=== PATIENT | female | born 1995 | race Caucasian/White ===

== ENCOUNTER 2018-08-06 13:53 | Emergency (ER) | payer OTHER, SELFPAY ==
[2018-08-06 13:54] VITALS: BP 124/73; PULSE 74; RESP 16; TEMP 36.8; O2SAT 99; BMI 25.6
--- NOTE | 2018-08-06 14:04 | US_ITS ---
STUDY: FIRST TRIMESTER OBSTETRICAL ULTRASOUND REASON FOR EXAM: Female, 23 years old. Bleeding. LMP: May 19, 2018 TECHNIQUE: Transvaginal TECHNICAL QUALITY: Adequate. PRIOR ULTRASOUND: None. FINDINGS: There is visualization of a single gestational sac in a normal intrauterine position. The mean sac diameter (MSD) measures 5.3 cm, indicating an estimated gestational age (EGA) of 11 weeks, 3 days. The gestational sac shape is within normal limits. There is small adjacent hypoechoic region with probable subchorionic hemorrhage There is no demonstrated yolk sac. The placenta is non-visualized. There is visualization of a live embryo. The crown-rump length (CRL) measures 4.9 cm, indicating an estimated gestational age (EGA) of 11 weeks, 4 days. There is demonstrated cardiac activity with a heart rate of 164 bpm. The estimated gestation age (EGA) by LMP is 11 weeks, 2 days. The estimated date of delivery (ESTHER) by LMP is February 23, 2019. The estimated gestation age (EGA) by US is 11 weeks, 4 days. The estimated date of delivery (ESTHER) by US is February 21, 2019. The uterus measures 12.6 x 8.2 x 7.9 cm. There is no demonstrated uterine fibroid. The cervix is closed. The right ovary measures 4.4 x 2.3 x 2.2 cm. There is no right ovarian cyst. There is no visualized right adnexal mass or complex lesion. The left ovary is not visualized. There is no fluid in the cul de sac. US/Transvaginal w/Preg US IMPRESSION: Single intrauterine gestation 11 weeks 4 days with estimated due date February 21, 2019. Region of probable subchorionic hemorrhage. Electronically Signed: Rudolph Cole MD at 16:59 EDT , Service support ,
--- NOTE | 2018-08-06 14:06 | ED.DCSUM_ITS ---
- ER Visit Summary Date of Service: 08/06/18 Chief Complaint: Vaginal bleeding, 11 weeks History of Present Illness: The patient is a 23 F who started having vaginal bleeding today. She states that similar to her menstrual period. She denies any pelvic pain with this. No vaginal discharge. She does have some urinary frequency but no dysuria. She is . She is sexually active with one partner. She has had no OB care up to this point. Physical Examination: Vital signs reviewed. HEENT exam unremarkable. Heart is regular rate and rhythm without murmurs. Lungs are clear to auscultation. Abdomen is soft and nontender. exam is deferred. Extremities reveal no edema. Skin exam normal. Neurologic exam normal. Test Results: The patient is O+. Urinalysis shows blood, likely from the vaginal bleeding. HCG quantitative is 71,283. Ultrasound per my interpretation as well as telecommunications switch technician shows a heart rate of 164. A single IUP is seen at 11 weeks gestation and formal radiologist interpretation is pending Emergency Department Course and Treatment: [] Treatment Plan: Patient will be reassured. There is a single IUP with heart tones in the 160s. Is pending formal dictation however, I do not feel that any other significant abnormalities will be seen. If there are, the patient will be notified. Patient will be discharged to follow-up with her OB /COMMERCIAL BAKER HELPER Disposition: Discharged to follow-up with DIRECTOR BUSINESS DEVELOPMENT Impression: First trimester bleeding, threatened This note was generated with [employer] dictation software. It may contain incorrect words, spelling, and punctuation that were not noted in review of the chart prior to signing ED Disposition - Plan for ED Patient: Disposition: Home or Assisted Living Instructions: ED Bleed Irregular Vaginal Referrals: Davian Mendieta DO [Primary Care Provider] - Shira Angulo MD [STAFF PHYSICIAN] -
[2018-08-06 14:42] LABS: Mucous, Urine 0 SEEN /hpf (<or=2+); Squamous Epithelial Cells - UA 0 SEEN /hpf (5-10); White Blood Cells 0 SEEN /hpf (0-5)
[2018-08-06 14:46] LABS: Color, Urine Yellow (Yellow); Glucose, Dipstick Normal (Normal); Ketone-Dipstick Negative (Negative); Leukocyte Esterase-Dipstick Negative /ul (Negative); Nitrite-Dipstick Negative (Negative); Occult Blood-Urine 250 /ul (Negative); Protein-Dipstick Negative (Negative); Urine Bilirubin Dipstick Negative (Negative); Urine Clarity Sl. Cloudy (Clear); Urine Urobilinogen Normal (Normal)
[2018-08-06 14:53] LABS: Bacteria 1+ /hpf (None Seen); Red Blood Cells-Urine 25-50 SEEN /hpf (0-5)
[2018-08-06 14:54] LABS: Amorphous Sediment 2+
--- NOTE | 2018-08-06 16:45 | ED.DEP ---
ED Disposition - Plan for ED Patient: Disposition: Home or Assisted Living Instructions: ED Bleed Irregular Vaginal Referrals: Davain Mendieta DO [Primary Care Provider] - Shira Angulo MD [STAFF PHYSICIAN] -
[2018-08-06 17:15] VITALS: BP 108/67; PULSE 75; RESP 16; O2SAT 100
== END 2018-08-06 17:16 | disposition home or self-care (01) ==
PROVIDERS: Emergency Provider Emergency Medicine; Family Provider Family Medicine; PCP Family Medicine
DX: O20.0 Threatened abortion (principal)
CPT/HCPCS: 76817; 81001; 84702; 86900; 99282; A4216

== ENCOUNTER → 2018-08-10 12:37 | Outpatient (CLI) | payer OTHER, SELFPAY ==
[2018-08-10 11:53] VITALS: BMI 25.6
[2018-08-10 13:10] LABS: Absolute Lymphocyte Count 1.51 X10^3/ul (0.83-4.51); Absolute Neutrophil Count 4.3 X10^3/uL (2.0-7.7); Basophil# 0.02 X10^3/uL; Basophil% 0.3 % (0-1); Eosinophil# 0.06 X10^3/uL; Eosinophils% 0.9 % (0-5); Hemoglobin 11.8 g/dl (12.0-15.0); Lymphocyte # 1.51 X10^3/ul (4.0); Lymphocyte % 22.5 % (19-41); Mean Corp Hgb Conc 35.8 g/gl (32-36); Mean Corpuscular Hgb 31.6 pg (27.0-32.0); Mean Corpuscular Volume 88.5 fL (81-99); Mean Platelet Vol. 9.1 fl (6.2-12.0); Monocyte# 0.82 X10^3/uL; Monocyte% 12.2 % (0-10); Neutrophil # 4.28 X10^3/uL (2.7-7.7); Platelet Count 296 K/mm3 (150-450); RBC Distribution Width CV 12.5 % (11.6-14.6); RBC Distribution Width SD 40.5 fl (35.1-43.9); Red Blood Count 3.73 M/mm3 (4.2-5.4); White Blood Count 6.7 K/mm3 (4.4-11.0)
[2018-08-10 13:13] LABS: POSITIVE COUNT NO; POSITIVE DIFFERENTIAL NO; POSITIVE MORPHOLOGY NO
[2018-08-10 14:22] LABS: HIV - WCH Non-Reactive (Nonreactive); Rubella IgG 155.5 IU/mL
[2018-08-10 16:49] LABS: Chlamydia Trachomatis by PCR Negative (Negative); Neisserai gonorrhoeae by PCR Negative (Negative); Probe Check PASS; Sample Adequacy Control PASS; Specimen Processing Control PASS
[2018-08-11 13:45] LABS: HEPATITIS B SURFACE AG Negative (Negative)
[2018-08-13 15:04] LABS: HPV Reflexed? NOT INDICATED
[2018-08-14 01:30] LABS: Rapid Plasmin Reagin (RPR) NONREACTIVE (NONREACTIVE)
== END ==
PROVIDERS: Family Provider Family Medicine; PCP Family Medicine; Referring Provider Nurse Practitioner Women's Health; Visit Provider Nurse Practitioner Women's Health
DX: Z12.4 Encounter for screening for malignant neoplasm of cervix (principal); Z34.81 Encounter for supervision of other normal pregnancy, first trimester
CPT/HCPCS: 36415; 85025; 86592; 86703; 86762; 86850; 87086; 87088; 87340; 87491; 87591; 87624; 88175; G0145

== ENCOUNTER → 2018-10-13 | Outpatient (CLI) | payer OTHER, SELFPAY ==
[2018-09-10 14:00] VITALS: BMI 25.6
--- NOTE | 2018-10-13 07:27 | US_ITS ---
STUDY: SECOND AND THIRD TRIMESTER OBSTETRICAL ULTRASOUND REASON FOR EXAM: Female, 23 years old. Routine survey. LMP: May 17, 2018. TECHNIQUE: Transabdominal TECHNICAL QUALITY: Adequate. PRIOR ULTRASOUND: Comparison is made with prior examination dated August 06, 2018. FINDINGS: There is a single intrauterine fetus. The fetus is in a cephalic presentation. There is demonstrated cardiac activity with a heart rate of 146 bpm. There is a normal amniotic fluid volume. The largest amniotic fluid pocket measures 6.9 cm x 3.6 cm. The amniotic fluid index (JOSE) is within normal limits. The placenta is posterior in location and is not low lying. There are Grade 0 placental changes. The cervix measures 3.9 cm in length. The bilateral adnexal regions are normal. BIOMETRY: BPD: 4.98 cm: 21 weeks, 1 days HC: 19.62 cm: 21 weeks, 6 days AC: 17.89 cm: 22 weeks, 6 days FL: 3.62 cm: 21 weeks, 4 days CI: 70% FL/BPD: 73% FL/HC: FL/AC: 20% HC/AC: 1.1 age by current US: 21 weeks, 6 days. ESTHER by current US: February 17, 2019. Estimated weight: 476 grams, +/- 70 grams, 85 %. age by prior US: 21 weeks, 2 days. ESTHER by prior US: February 21, 2019. Age by LMP: 21 weeks, 2 days. ESTHER by LMP: February 21, 2019. ANATOMY: Gender: Male Cranium: Normal lateral ventricles. Normal choroid plexus. Normal cerebellum. Normal cisterna magna. Normal face, nose and lips. Chest: Normal 4-chamber heart. Abdomen/Pelvis: Normal diaphragm. Normal stomach. Normal abdominal wall. Normal cord insertion. Normal 3 vessel cord. The right renal pelvis measures 4 mm. The left renal pelvis measures 3.6 mm. Normal bladder. Spine: Normal cervical spine. Normal thoracic spine. Normal lumbar spine. Normal sacrum. Extremities: Normal bilateral upper extremities. Normal bilateral lower extremities. US/OB Anatomy Scan IMPRESSION: Single live intrauterine gestation with a mean gestational age of 21 weeks and 2 days. The measurements obtained today following the normal expected range. Mild fullness of the renal pelves. Electronically Signed: Bobby Jauregui, at 11:03 EDT , Service support ,
== END | disposition home or self-care (01) ==
PROVIDERS: Family Provider Family Medicine; PCP Family Medicine; Referring Provider Obstetrics & Gynecology; Visit Provider Obstetrics & Gynecology
DX: Z34.90 Encounter for supervision of normal pregnancy, unspecified, unspecified trimester (principal)
CPT/HCPCS: 76805

== ENCOUNTER → 2018-12-03 | Outpatient (CLI) | payer OTHER, SELFPAY ==
[2018-11-05 11:35] VITALS: BMI 26.6
--- NOTE | 2018-12-03 13:49 | US_ITS ---
HISTORY: GROWTH- F/U RENAL FULLNESS ADDITIONAL HISTORY: None provided. COMPARISON: 10/13/2018 TECHNIQUE: Limited obstetric sonography performed with transabdominal approach, grayscale and color Doppler imaging. FINDINGS: NUMBER: 1 HEART RATE: 140 BPM PRESENTATION: Cephalic PLACENTA: Posterior. Placental jeronimo appears similar. CERVIX: Unremarkable, 4 cm AMNIOTIC FLUID: Normal JOSE, 10.36 cm BIOMETRY: BPD: 7.48 cm, 30 weeks 1 day HC: 28 cm, 30 weeks 5 days AC:24.35 cm, 28 weeks 5 days FL: 5.63 cm, 29 weeks 3 days AUA: 29 weeks 6 days ESTHER: 02/12/2019. ESTHER based upon clinical dating 02/21/2019. EFW: 1358 g, 62nd LMP percentile Anatomy: Right renal pelvis measures 3.7 mm. Left renal pelvis measures 4 mm. US/OB Limited With Biometrics IMPRESSION: Single, live intrauterine gestation, as detailed. Mild fullness of the renal pelves again seen without meeting criteria for pyelectasis. at 0541 Reported and signed by: Grace Escalante MD Electronically Signed: Grace Escalante MD at 5:41 EDT Tel , Service support ,
[2018-12-03 16:06] LABS: Absolute Lymphocyte Count 1.82 X10^3/uL (0.83-4.51); Absolute Neutrophil Count 6.1 X10^3/uL (2.0-7.7); Basophil# 0.04 X10^3/uL; Basophil% 0.5 % (0-1); Eosinophil# 0.17 X10^3/uL; Eosinophils% 1.9 % (0-5); Hematocrit 30.8 % (37-47); Hemoglobin 10.7 g/dL (12.0-15.0); Lymphocyte # 1.82 X10^3/ul (4.0); Lymphocyte % 20.6 % (19-41); Mean Corp Hgb Conc 34.7 g/dL (32-36); Mean Corpuscular Hgb 32.8 pg (27.0-32.0); Mean Corpuscular Volume 94.5 fL (81-99); Mean Platelet Vol. 9.5 fl (6.2-12.0); Monocyte# 0.69 X10^3/uL; Monocyte% 7.8 % (0-10); NRBC Flagged by Analyzer 0 % (0-5); Neutrophil # 6.07 X10^3/uL (2.7-7.7); Neutrophil % 68.5 % (47-70); Platelet Count 207 K/mm3 (150-450); RBC Distribution Width CV 12.6 % (11.6-14.6); RBC Distribution Width SD 43.8 fl (35.1-43.9); Red Blood Count 3.26 M/mm3 (4.2-5.4); White Blood Count 8.9 K/mm3 (4.4-11.0)
[2018-12-03 16:30] LABS: Glucose Challenge Gest 1H 50g 108 mg/dL (70-140)
== END | disposition home or self-care (01) ==
PROVIDERS: Family Provider Family Medicine; PCP Family Medicine; Referring Provider Obstetrics & Gynecology; Visit Provider Obstetrics & Gynecology
DX: Z34.00 Encounter for supervision of normal first pregnancy, unspecified trimester (principal); O28.3 Abnormal ultrasonic finding on antenatal screening of mother; Z3A.00 Weeks of gestation of pregnancy not specified
CPT/HCPCS: 36415; 76816; 82950; 85025

== ENCOUNTER → 2019-02-04 15:53 | Outpatient (CLI) | payer OTHER, SELFPAY ==
[2019-02-04 11:05] VITALS: BMI 29.4
== END ==
PROVIDERS: Family Provider Family Medicine; PCP Family Medicine; Referring Provider Nurse Practitioner Women's Health; Visit Provider Nurse Practitioner Women's Health
DX: Z34.90 Encounter for supervision of normal pregnancy, unspecified, unspecified trimester (principal)
CPT/HCPCS: 87081

== ENCOUNTER 2019-02-09 18:50 | Outpatient (CLI) | payer OTHER, SELFPAY ==
[2019-02-04 11:05] VITALS: BMI 29.4
[2019-02-09 19:48] VITALS: BMI 31.0
[2019-02-09 20:08] LABS: ROM Internal Control Test YES-OK TO RESULT pt. (Internal QC); ROM Patient Test Negative (Negative); Record Kit Lot#, ROM+ J8255
--- NOTE | 2019-02-10 05:26 | OB.TRI.PN_ITS ---
Progress Notes Date of Service: 02/09/19 Progress Note: Patient presents for triage evaluation secondary to contractions FHT: 140 Moderate variability reactive no decelerations category I tracing [place]: Irregular contractions Assessment and plan: false labor reactive NST, reassuring maternal and status patient discharged to home to follow-up as scheduled. See problem list details for additional plan information. Laboratory Studies: Laboratory Tests 02/09/19 Range/Units 19:35 Vag Amniotic Fld Detect Negative (Negative) - Problem List (1) False labor Status: Acute Multi Select Codes - Urinary/Genital Urinary/Genital CPT Codes: 54184-68 non-stress test Interp
== END 2019-02-09 20:30 | disposition home or self-care (01) ==
LOC: WPOUT 19:20 → WP 19:20
PROVIDERS: Family Provider Family Medicine; PCP Family Medicine; Referring Provider Obstetrics & Gynecology; Visit Provider Obstetrics & Gynecology
DX: O47.9 False labor, unspecified (principal); Z3A.00 Weeks of gestation of pregnancy not specified
CPT/HCPCS: 59025; 59050; 84112; 99218; G0378

== ENCOUNTER 2019-02-10 13:01 | Inpatient (IN) | payer SELFPAY ==
[2019-01-19 09:52] VITALS: BMI 29.4
[2019-02-10 12:33] VITALS: BMI 31.0
--- NOTE | 2019-02-10 13:23 | PCM.HP.OB ---
- Problem List (1) Abnormal ultrasonic finding on screening of mother Status: Acute Comment: Mild fullness of renal pelvis bilateral- offered fu ultrasound patient declines (2) Status: Acute Qualifiers: Weeks of gestation: 38 weeks Qualified Code(s): Z3A.38 - 38 weeks gestation of Comment: Declines carrier. NIPT- low risk. US vyrairdu-zexkfa-ja US patient to decide if desired. (3) Supervision of normal first Status: Acute Qualifiers: Trimester: third trimester Qualified Code(s): Z34.03 - Encounter for supervision of normal first , third trimester Comment: PRR ESTHER 02/21/19 gender surprise Spouse:Anup History Date of Admission: 02/11/19 Final ESTHER: 02/21/19 Gestational age: 38 Weeks and 4 Days History of this : This is a 23 year-old, , at 38 weeks gestational age presents in active labor at 5 cm. Patient is preferring minimal intervention. Patient with cervical change to 6 regular contractions no vaginal bleeding or loss of fluid and good movement. Surgical History: Surgical History (Last Reviewed 02/10/19 @ 12:33 by Grace Russell) S/P tonsillectomy and adenoidectomy Z90.89 Allergies No Known Allergies Allergy (Verified 02/10/19 12:32) Home Medications: Home Medications vitamin,calcium,xdeczjun-eune-jfquo acid tablet 1 tab PO DAILY 09/10/18 Ferrous Sulfate [Iron] 325 mg PO BID 02/09/19 Vitamin B Complex 1 tab PO DAILY 02/09/19 Smoking Status: Never smoker Alcohol: None Number of Fetus(es): 1 NST - FHR Rate Baby A Baseline: 130 Variability:: Moderate Accelerations:: 15 x 15 Decelerations:: None NST Reactive:: Yes FHR Category:: Category I Uterine Activity:: Every 3 to 4 History Past Pregnancies: Past Pregnancies Delivery Date Name GA/Weeks Outcome Route Weight Gender Labor Length Anesthesia Delivery Location Provider FOB Labs: Mom's Labs & Results 02/10/19 02/10/19 02/10/19 13:19 13:37 13:37 WBC 14.1 H RBC 3.78 L Hgb 12.7 Hct 35.9 L MCV 95.0 MCH 33.6 H MCHC 35.4 RDW Std Deviation 43.3 RDW Coeff of Zuleima 12.4 Plt Count 255 MPV 9.5 Immature Gran % (Auto) 0.500 Neut % (Auto) 78.8 H Lymph % (Auto) 12.0 L [place] % (Auto) 7.6 Eos % (Auto) 0.7 Baso % (Auto) 0.4 Absolute Neuts (auto) 11.1 H Absolute Lymphs (auto) 1.69 Nucleated RBC % 0 Vag Amniotic Fld Detect Negative Blood Type O POSITIVE Antibody Screen NEGATIVE Course Did the patient receive Yes care? Labs Blood Type: O RH: POSITIVE RPR/VDRL/Syphilis Nonreactive Rubella status Immune HbSAg Negative Date Done: 08/10/18 Chlamydia Negative Gonorrhea Negative HIV/AIDS Non-Reactive Group B Strep: Negative Current Obstetrical History Gestational Diabetes No Incompetent Cervix No Infertility No IUGR No Macrosomia No Hypertension/Pre-eclampsia No Placenta Previa/Abruption No PTL/PROM No Uterine anomaly No Oligohydramnios No Polyhydramnios No Multiple gestation No Past Medical History Asthma No Diabetes No Hypertension No Heart disease No Mitral valve prolapse No Neurologic/Seizure disorder/ No Migraines Kidney disease No Liver disease No Varicosities Yes Clotting disorders/Hx of DVT No Thyroid Dysfunction No Other medical diseases No Psychiatric disorders No Major trauma No Abnormal PAP smear No Sleep apnea No Mammogram in the last 2 years No Social History Marital Status: Alleged father ANUP Hx Smoking No Smoking Status Never smoker How long have you used NA substances (years)? Review of Systems Constitutional: Denies: Fever, Malaise Eyes: Denies: Blurred vision, Vision Change HEENT: Denies: Head Aches, Visual Changes Cardiovascular: Denies: Chest Pain, Palpitations Respiratory: Denies: Cough, Shortness of Breath, Wheezing Gastrointestinal: Denies: Abdominal Pain, Diarrhea, Nausea, Vomiting Genitourinary: Denies: Dysuria, Hematuria Musculoskeletal: Denies: Joint Pain, Muscle pain Skin: Denies: Lesions, Rash Neurological: Denies: Blurred vision, Focal weakness, Headaches Psychiatric: Denies: Anxiety, Depression Endocrine: Denies: Heat/ Cold Intolerance Hematologic/ Lymphatic: Denies: Easy Bruising, Easy Bleeding Physical Exam General: Alert, Cooperative, No apparent distress HEENT: Atraumatic, Normocephalic. Negative for: Thyromegaly, Lymphadenopathy Cardiovascular: Regular rate Lungs: Normal air movement Abdomen: Soft, Non Tender, Gravid Neurological: Deep Tendon Reflexes 2+/4 and Symmetrical, Neuro grossly intact. Negative for: Clonus COMPRESSOR STATION ENGINEER: Normal external genitalia. Negative for: Vulvar lesions Estimated gestational size: Appropriate for gestational size Presentation: Cephalic Assessment/Plan All Active Problems (Last Reviewed 02/10/19 @ 12:33 by Grace Russell) False labor (Acute) Abnormal ultrasonic finding on screening of mother (Acute) (Acute) Supervision of normal first (Acute) Bleeding in early (Resolved) Subchorionic hematoma (Resolved) This is a 23 year-old, G 1P0, at 38 weeks gestational age presents ial. Patient presents IAL, plan expectant management for , pitocin/AROM PRN if needed. Pain management: Prefers minimal intervention. GBS negative. Management of any complications: None I have reviewed the [facility] and made any clinically relevant updates.
[2019-02-10 13:49] LABS: Absolute Lymphocyte Count 1.69 X10^3/uL (0.83-4.51); Absolute Neutrophil Count 11.1 X10^3/uL (2.0-7.7); Basophil# 0.06 X10^3/uL; Basophil% 0.4 % (0-1); Eosinophils% 0.7 % (0-5); Hematocrit 35.9 % (37-47); Hemoglobin 12.7 g/dL (12.0-15.0); Lymphocyte # 1.69 X10^3/ul (4.0); Mean Corp Hgb Conc 35.4 g/dL (32-36); Mean Corpuscular Hgb 33.6 pg (27.0-32.0); Mean Platelet Vol. 9.5 fl (6.2-12.0); Monocyte# 1.07 X10^3/uL; Monocyte% 7.6 % (0-10); NRBC Flagged by Analyzer 0 % (0-5); Neutrophil # 11.09 X10^3/uL (2.7-7.7); Neutrophil % 78.8 % (47-70); Platelet Count 255 K/mm3 (150-450); RBC Distribution Width CV 12.4 % (11.6-14.6); RBC Distribution Width SD 43.3 fl (35.1-43.9); Red Blood Count 3.78 M/mm3 (4.2-5.4); White Blood Count 14.1 K/mm3 (4.4-11.0)
[2019-02-10 13:59] VITALS: BMI 30.7
[2019-02-10 14:01] LABS: ROM Internal Control Test YES-OK TO RESULT pt. (Internal QC); ROM Patient Test Negative (Negative); Record Kit Lot#, ROM+ J8255
[2019-02-10] MEDS: Lactated Ringers 1,000 ML 50 ML IV (14:26)
[2019-02-10] MEDS: 0.9% Saline Lock 10 ML Syringe IV ×2 (14:26→19:57)
[2019-02-10] MEDS: Lactated Ringers 500 ML 999 ML IV (16:17)
[2019-02-10] MEDS: Oxytocin 30 units/NS 500 ml 30 UNITS/500 ML IV.SOLN 334 UNITS IV (17:24)
--- NOTE | 2019-02-10 17:52 | PCM.OPRPT ---
Problem List (1) Abnormal ultrasonic finding on screening of mother Status: Acute Comment: Mild fullness of renal pelvis bilateral- offered fu ultrasound patient declines (2) Status: Acute Qualifiers: Weeks of gestation: 38 weeks Qualified Code(s): Z3A.38 - 38 weeks gestation of Comment: Declines carrier. NIPT- low risk. US apqniaib-likifi-vj US patient to decide if desired. (3) Supervision of normal first Status: Acute Qualifiers: Trimester: third trimester Qualified Code(s): Z34.03 - Encounter for supervision of normal first , third trimester Comment: PRR ESTHER 02/21/19 gender surprise Spouse:Anup Vaginal Delivery Maternal Presentation: Active Labor ial 38 weeks Amniotic Membrane Rupture Type: Artificial Amniotic Fluid Description: Clear Final ESTHER: 02/21/19 Gestational age: 38 Weeks and 4 Days Date of Procedure: 02/10/19 Pre-Operative Diagnosis: ial Post-Operative Diagnosis: same Surgery/ Procedure Performed: Spontaneous Vaginal Delivery Type of Anesthesia: Local with 1% lidocaine Description of Procedure: Patient began pushing and delivered the head in the jonah presentation. The head was delivered atraumatically The anterior and posterior shoulders delivered without complication followed by the rest of the infant and the was placed on the maternal abdomen. Delayed cord clamping was employed for approximately 60 seconds. Cord was clamped and cut and gentle traction was applied to the cord and the placenta delivered spontaneously immediately following it was noted to be intact with three-vessel cord. The perineum and vagina were inspected and a 2nd degreee perineal laceratio was seen and injected with lidocaine and repaired with 3-0 vicryl rapide EBL was 300 cc. Patient and infant tolerated delivery well. Presentation: JONAH Placental Delivery Description: Spontaneous Placenta Disposition: [facility] Cord Vessel Description: 3 Vessels Cord Entanglement: None Estimated Blood Loss: 300 A gender: Male Episiotomy Description: None Laceration: Perineal Extension/lac, 2nd degree Medications given after delivery: IV Pitocin Complications: None Multi Select Codes - Urinary/Genital Urinary/Genital CPT Codes: 43280 [facility]inal [facility]
[2019-02-10 19:40] VITALS: BP 112/63; PULSE 85; RESP 16; TEMP 37.5; O2SAT 98
[2019-02-10 23:25] VITALS: BP 105/63; PULSE 90; RESP 16; TEMP 37.3
[2019-02-11 04:48] VITALS: BP 109/61; PULSE 81; RESP 16; TEMP 36.8
[2019-02-11] MEDS: Naproxen 250 MG Tablet 500 MG PO (05:36)
--- NOTE | 2019-02-11 08:11 | PCM.PN.OB ---
Subjective: doing well no complaints pain controlled no CP SOB N V ambulating well tolerating po lochia moderate, going well - Physical Exam General: Alert, Oriented x3 Abdomen: Non Tender, Non-Distended, - - FF below U Vital Signs Temp Pulse Resp BP Pulse Ox 98.3 F 81 16 109/61 98 02/11/19 04:48 02/11/19 04:48 02/11/19 04:48 02/11/19 04:48 02/10/19 19:40 Oxygen Delivery Method Room Air Weight: 173 lb 11.588 oz Body Mass Index (BMI) 30.7 Intake and Output for Last 24 Hours 02/09/19 02/10/19 02/11/19 23:59 23:59 23:59 Intake Total 1593.33 / 1593.33 Output Total 1400 / 1400 Balance 193.33 / 193.33 Laboratory Tests Past 24 Hrs 02/10/19 02/10/19 02/10/19 13:19 13:37 13:37 WBC 14.1 H RBC 3.78 L Hgb 12.7 Hct 35.9 L MCV 95.0 MCH 33.6 H MCHC 35.4 RDW Std Deviation 43.3 RDW Coeff of Zuleima 12.4 Plt Count 255 MPV 9.5 Immature Gran % (Auto) 0.500 Neut % (Auto) 78.8 H Lymph % (Auto) 12.0 L [place] % (Auto) 7.6 Eos % (Auto) 0.7 Baso % (Auto) 0.4 Absolute Neuts (auto) 11.1 H Absolute Lymphs (auto) 1.69 Nucleated RBC % 0 Vag Amniotic Fld Detect Negative Blood Type O POSITIVE Antibody Screen NEGATIVE Medical Necessity - Tobacco Use Smoking Status: Never smoker Assessment/Plan All Active Problems (Last Reviewed 02/10/19 @ 12:33 by Grace Russell) False labor (Acute) Abnormal ultrasonic finding on screening of mother (Acute) (Acute) Supervision of normal first (Acute) Bleeding in early (Resolved) Subchorionic hematoma (Resolved) s/p PPD # 1 1. routine post delivery care 2. breast feeding- support given 3. rh positive 4. rubella immune 5. enc stool softener
[2019-02-11 09:45] VITALS: BP 107/49; PULSE 76; RESP 16; TEMP 37.2
[2019-02-11 12:00] VITALS: BP 109/55; PULSE 70; RESP 16; TEMP 37.2
[2019-02-11 12:40] VITALS: BP 109/55; PULSE 70; RESP 16; TEMP 37.2
[2019-02-11 16:00] VITALS: BP 106/49; PULSE 82; RESP 16; TEMP 37.1
[2019-02-11 20:34] VITALS: BP 102/45; PULSE 91; RESP 18; TEMP 37.3; O2SAT 97
--- NOTE | 2019-02-11 20:35 | NURSING ---
Patient denies light headedness or dizziness.
[2019-02-12 02:45] VITALS: BP 88/46; PULSE 72; RESP 16; TEMP 36.9; O2SAT 98
--- NOTE | 2019-02-12 02:47 | NURSING ---
Patient denies dizziness or light headedness.
--- NOTE | 2019-02-12 05:39 | PCM.PN.OB ---
Subjective: doing well no complaints pain controlled no CP SOB N V ambulating well tolerating po lochia moderate, going well - Physical Exam General: Alert, Oriented x3 Vital Signs Temp Pulse Resp BP Pulse Ox 98.4 F 72 16 88/46 L 98 02/12/19 02:45 02/12/19 02:45 02/12/19 02:45 02/12/19 02:45 02/12/19 02:45 Oxygen Delivery Method Room Air Weight: 173 lb 11.588 oz Body Mass Index (BMI) 30.7 Intake and Output for Last 24 Hours 02/10/19 02/11/19 02/12/19 23:59 23:59 23:59 Intake Total 1593.33 / 1593.33 Output Total 1400 / 1400 Balance 193.33 / 193.33 Medical Necessity - Tobacco Use Smoking Status: Never smoker Assessment/Plan All Active Problems (Last Reviewed 02/10/19 @ 12:33 by Grace Russell) False labor (Acute) Abnormal ultrasonic finding on screening of mother (Acute) (Acute) Supervision of normal first (Acute) Bleeding in early (Resolved) Subchorionic hematoma (Resolved) s/p PPD # 2 1. routine post delivery care 2. breast feeding- support given 3. rh positive 4. rubella immune
--- NOTE | 2019-02-12 05:40 | DCINST_ITS ---
Discharge Diet: No Restrictions Discharge Activity: Return to Normal Activity, May not drive while taking narcotic pain medications., May Shower May resume sexual activity in: 4-6 weeks Call your doctor if your incision/area has: Continuous Slow Oozing, Sudden Increased Bleeding, Increased Pain/ Swelling, Increased Redness, Foul Smelling Discharge Additional Instructions: If you experience any of the following, contact your healthcare provider. * Bleeding that soaks a pad every hour for 2 hours * Fever 100.4 or higher * Unrelieved incision or abdominal pain * Swelling, redness, discharge or bleeding from your incision or episiotomy site * Your incision begins to separate * Problems urinating (including inability to urinate or burning while urinating). * Visual changes * Severe headache * Flu-like symptoms * Pain or redness in one of both of your breasts * Pain, warmth, tenderness or swelling in your legs, especially the calf area * Frequent nausea and vomiting * Symptoms of depression or anxiety If you experience any of the following, call 911 or go to the nearest Emergency Room. * Chest pain * Problems breathing * Seizure activity * Partial or complete paralysis of a body part, slurred speech, weakness or drooping of the face, or a sudden inability to walk or hold your balance Allergies/Adverse Reactions: Allergies No Known Allergies Allergy (Verified 02/10/19 14:00) Medications to take at Discharge vitamin,calcium,tixdwmlj-srfs-tmnvz acid tablet 1 tab PO DAILY 09/10/18 Ferrous Sulfate [Iron] 325 mg PO BID 02/09/19 Vitamin B Complex 1 tab PO DAILY 02/09/19 Please Follow Up With: Shira Angulo MD - [phone] When: Call to make an appointment with your doctor in 6 weeks. If you had elevated Blood pressure or 4th degree laceration you will need to be seen in 2 weeks. Primary Care Physician: Davian Mendieta DO [Primary Care Provider] - Test Results: Test results from this visit will be discussed in further detail at your follow- up appointment, if applicable.
--- NOTE | 2019-02-12 05:40 | PCM.DCVAG ---
Discharge Diet: No Restrictions Discharge Activity: Return to Normal Activity, May not drive while taking narcotic pain medications., May Shower May resume sexual activity in: 4-6 weeks Call your doctor if your incision/area has: Continuous Slow Oozing, Sudden Increased Bleeding, Increased Pain/ Swelling, Increased Redness, Foul Smelling Discharge Additional Instructions: If you experience any of the following, contact your healthcare provider. Bleeding that soaks a pad every hour for 2 hours Fever 100.4 or higher Unrelieved incision or abdominal pain Swelling, redness, discharge or bleeding from your incision or episiotomy site Your incision begins to separate Problems urinating (including inability to urinate or burning while urinating). Visual changes Severe headache Flu-like symptoms Pain or redness in one of both of your breasts Pain, warmth, tenderness or swelling in your legs, especially the calf area Frequent nausea and vomiting Symptoms of depression or anxiety If you experience any of the following, call 911 or go to the nearest Emergency Room. Chest pain Problems breathing Seizure activity Partial or complete paralysis of a body part, slurred speech, weakness or drooping of the face, or a sudden inability to walk or hold your balance Allergies/Adverse Reactions: Allergies No Known Allergies Allergy (Verified 02/10/19 14:00) Medications to take at Discharge vitamin,calcium,cjthvlwg-ldkw-tgrie acid tablet 1 tab PO DAILY 09/10/18 Ferrous Sulfate [Iron] 325 mg PO BID 02/09/19 Vitamin B Complex 1 tab PO DAILY 02/09/19 Please Follow Up With: Shira Angulo MD - [phone] When: Call to make an appointment with your doctor in 6 weeks. If you had elevated Blood pressure or 4th degree laceration you will need to be seen in 2 weeks. Primary Care Physician: Davian Mendieta DO [Primary Care Provider] - Test Results: Test results from this visit will be discussed in further detail at your follow-up appointment, if applicable.
[2019-02-12 07:30] VITALS: BP 102/60; PULSE 77; RESP 12; TEMP 36.6
[2019-02-12 11:46] VITALS: BP 104/54; PULSE 71; RESP 14; TEMP 37.2
== END 2019-02-12 12:20 | disposition home or self-care (01) | DRG 807 ==
LOC: WPOUT 13:15 → WP 13:16 → WPOUT 13:24
PROVIDERS: Admitting Provider Obstetrics & Gynecology; Family Provider Family Medicine; PCP Family Medicine; Referring Provider Obstetrics & Gynecology; Visit Provider Obstetrics & Gynecology
DX: O75.89 Other specified complications of labor and delivery (principal); O70.1 Second degree perineal laceration during delivery; Z37.0 Single live birth; O35.8XX0 Maternal care for other (suspected) fetal abnormality and damage, not applicable or unspecified; Z3A.38 38 weeks gestation of pregnancy
CPT/HCPCS: 59025; 59050; 84112; 85025; 86850; 86900; 86901; 99218; J7120; A4216; G0378

== ENCOUNTER → 2020-03-13 11:16 | Outpatient (CLI) | payer OTHER, SELFPAY ==
[2020-02-28 12:11] VITALS: BMI 30.7
--- NOTE | 2020-03-13 11:17 | US_ITS ---
STUDY: SECOND AND THIRD TRIMESTER OBSTETRICAL ULTRASOUND REASON FOR EXAM: Female, 25 years old anatomy LMP: 10/27/2019. TECHNIQUE: Transabdominal TECHNICAL QUALITY: Adequate. PRIOR ULTRASOUND: None. FINDINGS: There is a single intrauterine fetus. The fetus is in a cephalic presentation. There is demonstrated cardiac activity with a heart rate of 157 bpm. There is a normal amniotic fluid volume. The largest amniotic fluid pocket measures 4.0 cm x 4.2 cm. The amniotic fluid index (JOSE) is within normal limits. The placenta is anterior in location and is not low lying. There are Grade 0 placental changes. The cervix measures 3.1 cm in length. The bilateral adnexal regions are normal. BIOMETRY: BPD: 4.57 cm: 19 weeks, 5 days HC: 17.81 cm: 20 weeks, 1 days AC: 15.3 cm: 20 weeks, 3 days FL: 3.1 [place]: 19 weeks, 4 days CI: 72% FL/BPD: 68% FL/HC: FL/AC: 20% HC/AC: 1.16 age by current US: 20 weeks, 0 days. ESTHER by current US: 07/31/2020. Estimated weight: 333 grams, +/- 50 grams, 67 %. Age by LMP: 19 weeks, 5 days. ESTHER by LMP: 08/03/2019. ANATOMY: Gender: Male Cranium: Normal lateral ventricles. Normal choroid plexus. Normal cerebellum. Normal cisterna magna. Normal face, nose and lips. Chest: Normal 4-chamber heart. Abdomen/Pelvis: Normal diaphragm. Normal stomach. Normal abdominal wall. Normal cord insertion. Normal 3 vessel cord. Normal kidneys. Normal bladder. Spine: Normal cervical spine. Normal thoracic spine. Normal lumbar spine. Normal sacrum. Extremities: Normal bilateral upper extremities. Normal bilateral lower extremities. US/OB Anatomy Scan IMPRESSION: Single live intrauterine gestation with a mean gestational age of 20 weeks. Electronically Signed: Bobby Jauregui, at 13:34 EDT , Service support ,
[2020-03-13 14:41] LABS: Absolute Lymphocyte Count 1.81 X10^3/uL (0.83-4.51); Absolute Neutrophil Count 5.8 X10^3/uL (2.0-7.7); Basophil# 0.03 X10^3/uL; Basophil% 0.4 % (0-1); Eosinophil# 0.09 X10^3/uL; Eosinophils% 1.1 % (0-5); Hematocrit 33.8 % (37-47); Hemoglobin 11.7 g/dL (12.0-15.0); Lymphocyte # 1.81 X10^3/ul (4.0); Lymphocyte % 21.4 % (19-41); Mean Corp Hgb Conc 34.6 g/dL (32-36); Mean Corpuscular Hgb 31.3 pg (27.0-32.0); Mean Corpuscular Volume 90.4 fL (81-99); Mean Platelet Vol. 9.3 fl (6.2-12.0); Monocyte# 0.66 X10^3/uL; Monocyte% 7.8 % (0-10); NRBC Flagged by Analyzer 0 % (0-5); Neutrophil # 5.84 X10^3/uL (2.7-7.7); Neutrophil % 68.8 % (47-70); Platelet Count 290 K/mm3 (150-450); RBC Distribution Width SD 42.4 fl (35.1-43.9); Red Blood Count 3.74 M/mm3 (4.2-5.4); White Blood Count 8.5 K/mm3 (4.4-11.0)
[2020-03-13 17:51] LABS: Rubella IgG 142.7 IU/mL
== END ==
PROVIDERS: PCP Family Medicine; Referring Provider Obstetrics & Gynecology; Visit Provider Obstetrics & Gynecology
DX: Z34.81 Encounter for supervision of other normal pregnancy, first trimester (principal)
CPT/HCPCS: 36415; 76805; 85025; 86762; 86850; 86900; 86901; 87086; 87088

== ENCOUNTER → 2020-05-08 12:55 | Outpatient (CLI) | payer OTHER, SELFPAY ==
[2020-04-10 13:35] VITALS: BMI 30.2
[2020-05-08 13:19] LABS: Absolute Lymphocyte Count 1.63 X10^3/uL (0.83-4.51); Absolute Neutrophil Count 6.9 X10^3/uL (2.0-7.7); Basophil# 0.05 X10^3/uL; Basophil% 0.5 % (0-1); Hematocrit 31.1 % (37-47); Hemoglobin 11.5 g/dL (12.0-15.0); Lymphocyte # 1.63 X10^3/ul (4.0); Lymphocyte % 16.9 % (19-41); Mean Corpuscular Hgb 34.8 pg (27.0-32.0); Mean Corpuscular Volume 94.2 fL (81-99); Mean Platelet Vol. 9.5 fl (6.2-12.0); Monocyte# 0.87 X10^3/uL; NRBC Flagged by Analyzer 0 % (0-5); Neutrophil # 6.94 X10^3/uL (2.7-7.7); Neutrophil % 72.1 % (47-70); Platelet Count 226 K/mm3 (150-450); RBC Distribution Width CV 13.2 % (11.6-14.6); RBC Distribution Width SD 44.2 fl (35.1-43.9); White Blood Count 9.6 K/mm3 (4.4-11.0)
[2020-05-08 13:27] LABS: Glucose Challenge Gest 1H 50g 91 mg/dL (70-140)
== END ==
PROVIDERS: PCP Family Medicine; Referring Provider Obstetrics & Gynecology; Visit Provider Obstetrics & Gynecology
DX: Z34.80 Encounter for supervision of other normal pregnancy, unspecified trimester (principal); Z13.1 Encounter for screening for diabetes mellitus
CPT/HCPCS: 36415; 82950; 85025

== ENCOUNTER → 2020-07-10 | Outpatient (CLI) | payer OTHER, SELFPAY ==
[2020-07-10 13:52] VITALS: BMI 34.0
== END | disposition home or self-care (01) ==
LOC: LABSPEC 16:59
PROVIDERS: PCP Family Medicine; Visit Provider Obstetrics & Gynecology
DX: Z34.90 Encounter for supervision of normal pregnancy, unspecified, unspecified trimester (principal)
CPT/HCPCS: 87081

== ENCOUNTER → 2020-07-10 | Outpatient (CLI) | payer OTHER, SELFPAY ==
[2020-07-10 13:52] VITALS: BMI 34.0
== END | disposition home or self-care (01) ==
LOC: LABSPEC 17:01
PROVIDERS: Referring Provider Obstetrics & Gynecology; Visit Provider Obstetrics & Gynecology
DX: Z00.00 Encounter for general adult medical examination without abnormal findings (principal)

== ENCOUNTER → 2020-07-17 | Outpatient (CLI) | payer OTHER, SELFPAY ==
[2020-07-17 13:27] VITALS: BMI 34.2
[2020-07-17 14:13] LABS: ROM Internal Control Test YES-OK TO RESULT pt. (Internal QC); ROM Patient Test Negative (Negative)
== END | disposition home or self-care (01) ==
LOC: LABSPEC 13:48
PROVIDERS: PCP Obstetrics & Gynecology; Visit Provider Obstetrics & Gynecology
DX: N89.8 Other specified noninflammatory disorders of vagina (principal)
CPT/HCPCS: 84112

== ENCOUNTER 2020-07-26 22:30 | Inpatient (IN) | payer SELFPAY, OTHER ==
[2020-07-24 13:29] VITALS: BMI 34.5
[2020-07-26 22:26] VITALS: BP 108/56; PULSE 75; TEMP 36.8; O2SAT 97
[2020-07-26 22:26] LABS: ROM Internal Control Test YES-OK TO RESULT pt. (Internal QC)
[2020-07-26 22:28] LABS: ROM Patient Test POSITIVE (Negative)
[2020-07-26 22:31] VITALS: BMI 36.3
[2020-07-26] MEDS: Lactated Ringers 1,000 ML 50 ML IV (23:00)
[2020-07-26 23:17] LABS: Absolute Lymphocyte Count 2.09 X10^3/uL (0.83-4.51); Absolute Neutrophil Count 6.3 X10^3/uL (2.0-7.7); Basophil# 0.08 X10^3/uL; Basophil% 0.8 % (0-1); Eosinophil# 0.11 X10^3/uL; Eosinophils% 1.2 % (0-5); Hematocrit 34.3 % (37-47); Hemoglobin 11.8 g/dL (12.0-15.0); Lymphocyte # 2.09 X10^3/ul (4.0); Mean Corp Hgb Conc 34.4 g/dL (32-36); Mean Corpuscular Hgb 32.7 pg (27.0-32.0); Mean Platelet Vol. 9.5 fl (6.2-12.0); Monocyte# 0.89 X10^3/uL; Monocyte% 9.4 % (0-10); NRBC Flagged by Analyzer 0 % (0-5); Neutrophil # 6.28 X10^3/uL (2.7-7.7); Neutrophil % 66.1 % (47-70); Platelet Count 240 K/mm3 (150-450); RBC Distribution Width CV 12.5 % (11.6-14.6); Red Blood Count 3.61 M/mm3 (4.2-5.4); White Blood Count 9.5 K/mm3 (4.4-11.0)
[2020-07-26 23:32] VITALS: BP 107/59; PULSE 68; TEMP 36.8; O2SAT 96
[2020-07-26] MEDS: fentaNYL 100 MCG/2 ML Ampul IV (23:54)
[2020-07-26] MEDS: 0.9% Saline Lock 10 ML Syringe IV (23:54)
[2020-07-27] VITALS (61 sets, daily range): BP systolic 86–121; BP diastolic 45–75; PULSE 62–85; RESP 16; TEMP 36.2–37.1; O2SAT 97–100
[2020-07-27 00:08] LABS: Bacteria 0 SEEN /hpf (None Seen); Mucous, Urine 0 SEEN /hpf (<or=2+); Red Blood Cells-Urine 0 SEEN /hpf (0-5); Squamous Epithelial Cells - UA 0 SEEN /hpf (5-10); White Blood Cells 0 SEEN /hpf (0-5)
[2020-07-27 00:09] LABS: Color, Urine Yellow (Yellow); Glucose, Dipstick Normal (Normal); Ketone-Dipstick Negative (Negative); Leukocyte Esterase-Dipstick Negative /ul (Negative); Nitrite-Dipstick Negative (Negative); Occult Blood-Urine Negative /ul (Negative); Protein-Dipstick Negative (Negative); Urine Bilirubin Dipstick Negative (Negative); Urine Clarity Clear (Clear); Urine Urobilinogen Normal (Normal)
[2020-07-27 00:28] LABS: Amphetamine Urine VISTA NEGATIVE (<1000 ng/mL); Barbiturate Urine VISTA NEGATIVE (< 200 ng/mL); Benzodiazepine Urine VISTA NEGATIVE (< 200 ng/mL); Cocaine Urine VISTA NEGATIVE (< 300 ng/mL); Ecstacy Urine VISTA NEGATIVE (< 500 ng/mL); Methadone Urine VISTA NEGATIVE (< 300 ng/mL); PCP Urine VISTA NEGATIVE (< 25 ng/mL); THC Urine VISTA NEGATIVE (< 50 ng/mL); Vista UDS pH Range 7
[2020-07-27 01:49] LABS: Chlamydia Trachomatis by PCR Negative (Negative); Neisserai gonorrhoeae by PCR Negative (Negative)
[2020-07-27 01:50] LABS: Probe Check PASS; Sample Adequacy Control PASS; Specimen Processing Control PASS
[2020-07-27] MEDS: Oxytocin 30 units/NS 500 ml 30 UNITS/500 ML IV.SOLN IV (01:54)
[2020-07-27] MEDS: Lactated Ringers 500 ML 999 ML IV ×2 (01:54→03:37)
[2020-07-27] MEDS: fentaNYL-bupivacaine (epidural) 100 ML BAG EPIDURAL (03:23)
[2020-07-27] MEDS: Lactated Ringers 1,000 ML 200 ML IV (03:37)
[2020-07-27] MEDS: Oxytocin 30 units/NS 500 ml 30 UNITS/500 ML IV.SOLN 334 UNITS IV (06:55)
--- NOTE | 2020-07-27 07:17 | PCM.HPOB.BLA ---
- Problem List (1) Active labor Status: Acute (2) 36 weeks gestation of Status: Acute Comment: electronic covid test ordered 07/05/20 (scheduled for 07/31/20 at 1400) (3) Late care affecting Status: Acute Qualifiers: Comment: approx 20 weeks (4) Status: Acute Qualifiers: Comment: low risk NIPT. Declines carrier and ntd screening. SP patient declined labs except cbc, t and s, rubella and urine culture. to get remainder of labs at delivery. (5) Supervision of other normal Status: Acute Comment: PRR(limited labs) ESTHER: 08/02/20, boy, Spouse: Anup PC: Yaron History and Physical Date of Admission: 07/27/20 Intake Vital Signs 07/24/20 Height 5 ft 3 in 07/24/20 Weight: 195 lb 4 oz 07/24/20 BMI 34.5 07/24/20 BP 118/78 Intake Visit Reasons: 38 WK OB Information Management Specialist Required: No Is patient in pain?: No Allergies No Known Allergies Allergy (Verified 07/24/20 13:30) Medications ferrous sulfate 325 mg (65 mg iron) tablet 325 mg PO DAILY 03/13/20 [History Confirmed 07/24/20] vitamin#30 30 mg iron-10 mg iron-folic acid 1 mg-omg3 capsule cap PO 03/13/20 [History Confirmed 07/24/20] Last Menstral Period: 10/27/19 Zika: Zika virus screening: Negative : No PFSH PFSH Surgical History S/P tonsillectomy and adenoidectomy (Acute) Family History Father Lyme disease Social History (Updated 07/24/20 @ 13:[address] Shaylee Damian MD) household members: family number of children: 1 current occupational status: unemployed current occupation: Homemaker Smoking Status: Never smoker second hand exposure: No alcohol intake: never substance use type: does not use seatbelt use: always do you feel safe at home: Yes additional social history: Anup Santiago Pregancy History 2 Elective abortions Hx Para 1 Spontaneous abortions Hx # Term Pregnancies Ectopic pregnancies Hx # Pregnancies Multiple births # of living children 1 Past Pregnancies Del. Date Name GA/Weeks Outcome Route Bth Weight Infant Gen Labor [facility] F[facility] 02/10/19 Yaron 38 live - full term 6lbs 13oz Male 6 hours local [facility] Anup Delivery Date: 02/10/19 2 degree lac Kina Ferraro HPI 38 WK OB: Details: LETHA PENA is a 25 year old who presents for routine OB visit. OB Visit ESTHER Calculator Estimated Delivery Date Method Current WG Current Estimate 08/02/20 LMP (Certain) 38w 5d Expected Delivery Route/Plan Labor Preferences- CB/BF classes: no labor support person: Anup labor intervention preferences: pain management options preferred: minimal intervention cut cord/dad catch: no : yes PP control planned: NFP discussed possible routes of delivery and associated risks: [] special requests: [] Specific Issue/Plans flu vaccine: declines tdap vaccine: declines rhogam: na LARC form signed: yes movement and labor precautions reviewed. Problem list reviewed and updated with the most current plan of care details and appropriate orders placed. Relevant counseling for the gestational age provided. Continue routine care and follow up unless otherwise noted in visit notes/problem list details Initial Weight: 150 lb Date EGA Weight BP Urine Prot Glucose FHR FuHt Pres Dilation Effaced St Visit Note 03/13/20 19w 5d 162 lb (+12 lb) 104/62 155 Sm- no vb cramping NOB visit counseled regarding labs and patient declines STD screening until delivery, plan CBC t and S urine culture and rubella. 04/10/20 23w 5d 170 lb 6 oz (+20 lb 6 oz) 114/82 Negative Negative 150 23 GP - no ctx, LOF, VB, DFM. GCT next visit. 05/08/20 27w 5d 180 lb 2 oz (+30 lb 2 oz) 118/64 Negative Negative 05/29/20 30w 5d 183 lb 6 oz (+33 lb 6 oz) 112/70 Negative Negative 148 30 MH-No VB, LOF. Good Fm Denies concerns. 06/19/20 33w 5d 188 lb (+38 lb) 130/76 Negative Negative 145 34 SM- no vb lof good fm no regular ctx 07/03/20 35w 5d 191 lb 8 oz (+41 lb 8 oz) 110/72 Negative Negative 145 35 GP - no LOF, VB, DFM, ctx. Decided on Lee for name 07/10/20 36w 5d 192 lb (+42 lb) 104/72 Negative Negative 145 36 Cephalic 1 0 -3 SM- no vb lof good fm no regular ctx gbs 07/17/20 37w 5d 193 lb 2 oz (+43 lb 2 oz) 138/86 Negative Negative 145 37 Cephalic 1 SM- no vb questionable lof good fm irreguar ctx 07/24/20 38w 5d 195 lb 4 oz (+45 lb 4 oz) 118/78 Negative Negative 150 38 Cephalic 1 50 -2 GP - no LOF, VB, DFM, ctx. Denies complaints. ACOG First Trimester First Trimester: Desire for , Alcohol, Tobacco Cessation, Illicit/Recreational Drug/Substance Use, Intimate Partner Violence, Barriers to care, Unstable Housing, Communication Barriers, Environmental/Work Hazards, Anticipated Course of Care, Toxoplasmosis Precations, Use of Any medications, Sexual activity, Exercise, Dental Care, Sauna/Hot tub use, Seat Belt use, Childbirth classes/Hospital facilities, Travel, Indications for US and Screening for Aneuploidy; discussed Second Trimester Second Trimester: Signs and Symptoms of Labor, Selecting a care provider, Reproductive Life Planning, Care Planning, Depression/Anxiety and Intimate Partner Violence; discussed Tobacco Cessation Diagnostics Diagnostics Diagnostics Blood Type O POSITIVE 03/13/20 Antibody Screen NEGATIVE 03/13/20 Glucose 1 Hr 50 gm 91 mg/dL (70-140) 05/08/20 Rubella IgG Antibody 142.7 IU/mL 03/13/20 Hgb 11.5 g/dL (12.0-15.0) L 05/08/20 Hct 31.1 % (37-47) L 05/08/20 Details: HIV: Urine Culture: Sequential Screen: NIPT Screen: ROS Const Reports system reviewed and no additional complaints, except as docu Eyes Reports system reviewed and no additional complaints, except as docu ENT Reports system reviewed and no additional complaints, except as docu Card Reports system reviewed and no additional complaints, except as docu Resp Reports system reviewed and no additional complaints, except as docu GI Denies heartburn, Denies nausea, Denies vomiting Denies abnormal vaginal bleeding, Denies painful urination, Denies pelvic pain, Denies vaginal discharge, Denies vaginal odor, Denies vaginal itching Musc Reports system reviewed and no additional complaints, except as docu Skin/Breast Reports system reviewed and no additional complaints, except as docu Neuro Yes system reviewed and no additional complaints, except as docu Psych Reports system reviewed and no additional complaints, except as docu Endo Reports system reviewed and no additional complaints, except as docu Exam Const General: cooperative, healthy appearing, comfortable, no acute distress, well developed, well groomed Nutritional Appearance: average body habitus, well nourished Orientation: alert, awake, oriented x3 HENMT Head: normal to inspection, normocephalic, atraumatic Eyes Pupils: PERRL, accommodation normal Resp Effort & Inspection: normal respiratory effort, able to speak in complete sentences, symmetric chest movement Cardio Rate: regular rate GI Palpation: soft, no guarding, no masses, nontender Skin General: no rashes or lesions noted, elasticity normal, turgor normal Neuro General: alert, awake, oriented x3 Cranial Nerves: CN's II-XI intact bilaterally, sense of smell intact, PERRL, accommodation normal, EOM intact bilaterally Speech: speech normal Gait: normal gait Psych Appearance: grossly normal, well kempt Mental Status: mental status grossly normal Mood: congruent mood Affect: normal affect Speech and Movement: speech and movement normal Attitude: cooperative Thought Process: normal Thought Content: normal Judgment: judgment good Results POC Urinalysis 2 Dip (Clinic) Office Urine Glucose Negative Last Edit by Lenore Bradshaw on 07/24/20 13:29 Office Urine Protein Negative Last Edit by Lenore Bradshaw on 07/24/20 13:29 Assessment & Plan Problems 1. 36 weeks gestation of Z3A.36 electronic covid test ordered 07/05/20 (scheduled for 07/31/20 at 1400) 2. Late care affecting in third trimester O09.33 approx 20 weeks 3. Supervision of other normal Z34.80 PRR(limited labs) ESTHER: 08/02/20, boy, Spouse: Anup PC: Yaron 4. 38 weeks gestation of Z3A.38 low risk NIPT. Declines carrier and ntd screening. SP patient declined labs except cbc, t and s, rubella and urine culture. to get remainder of labs at delivery. UPDATE- I have seen the patient and performed any clinically relevant updates to the history and physical exam. Shaylee Damian MD
--- NOTE | 2020-07-27 07:18 | PCM.OPRPT ---
Problem List (1) Active labor Status: Acute (2) 36 weeks gestation of Status: Acute Comment: electronic covid test ordered 07/05/20 (scheduled for 07/31/20 at 1400) (3) Late care affecting Status: Acute Qualifiers: Comment: approx 20 weeks (4) Status: Acute Qualifiers: Comment: low risk NIPT. Declines carrier and ntd screening. SP patient declined labs except cbc, t and s, rubella and urine culture. to get remainder of labs at delivery. (5) Supervision of other normal Status: Acute Comment: PRR(limited labs) ESTHER: 08/02/20, boy, Spouse: Anup PC: Yaron Vaginal Delivery Maternal Presentation: Spontaneous Rupture of Membranes 25-year-old G2, P1 at 39 weeks gestation admitted for rupture membranes. Patient was augmented with Pitocin and made a cervical change to complete dilation. Method of Induction: Pitocin Amniotic Membrane Rupture Type: Spontaneous at home Amniotic Fluid Description: Clear Final ESTHER: 08/02/20 Gestational age: 39 Weeks and 1 Days Date of Procedure: 07/27/20 Pre-Operative Diagnosis: Term , spontaneous rupture of membranes, active labor Post-Operative Diagnosis: Same Surgery/ Procedure Performed: Spontaneous Vaginal Delivery Type of Anesthesia: Epidural Description of Procedure: Patient began pushing and delivered the head in the JUANY presentation. The head was delivered atraumatically and loose nuchal cord was noted and delivered through. The anterior and posterior shoulders delivered without complication followed by the rest of the and the was placed on the maternal abdomen. Delayed cord clamping was employed for approximately 60 seconds. Cord was clamped and cut and gentle traction was applied to the cord and the placenta delivered spontaneously immediately following it was noted to be intact with three-vessel cord. The perineum and vagina were inspected and a midline second-degree perineal laceration was noted and repaired in standard fashion using 3-0 Vicryl Rapide suture. Oozing was noted from the repair and hemostasis was obtained using 2-0 Vicryl suture. EBL was 300 cc. Patient and tolerated delivery well. Presentation: Vertex, JUANY Placental Delivery Description: Spontaneous Placenta Disposition: [facility] Cord Vessel Description: 3 Vessels Nuchal Cord Compression: Without compression Cord Entanglement: Around neck x 1, loose Drain: [place] to straight drain Estimated Blood Loss: 300 Infant A gender: Male Episiotomy Description: None Laceration: Midline, Perineal Extension/lac, 2nd degree Medications given after delivery: IV Pitocin Complications: None Multi Select Codes - Urinary/Genital Urinary/Genital CPT Codes: 87440 Vaginal Delivery [facility]
[2020-07-27 09:00] LABS: Syphilis Antibodies Non-reactive
[2020-07-27 09:21] LABS: HIV - WCH Non-Reactive (Nonreactive); Hepatitis B Surface Antigen Non-Reactive (Nonreactive); Hepatitis C Antibody Non-Reactive (Nonreactive)
[2020-07-27] MEDS: Acetaminophen 500 MG Tablet 1000 MG PO (16:37)
[2020-07-27] MEDS: Naproxen 250 MG Tablet 500 MG PO (22:18)
[2020-07-28] VITALS: BP 114/75; PULSE 75; RESP 16; TEMP 36.7
[2020-07-28 00:58] VITALS: BP 114/57; PULSE 75
[2020-07-28] MEDS: Acetaminophen 500 MG Tablet 1000 MG PO (03:34)
[2020-07-28 03:35] VITALS: BP 95/53; PULSE 75; RESP 16; TEMP 36.7
[2020-07-28 03:36] VITALS: BP 95/53; PULSE 73
--- NOTE | 2020-07-28 07:38 | PCM.PN.OB ---
Subjective: Patient doing well without complaints. Tolerating PO. Ambulating and voiding without difficulty. Breast feeding well. Denies chest pain, shortness of breath, calf pain/swelling, fevers, chills, lightheadedness. - Physical Exam Vitals/I&O's: Vital Signs Temp Pulse Resp BP Pulse Ox 98.0 F 73 16 95/53 L 98 07/28/20 03:35 07/28/20 03:36 07/28/20 03:35 07/28/20 03:36 07/27/20 16:15 Oxygen Delivery Method Room Air Weight: 198 lb 9.6 oz Body Mass Index (BMI) 36.3 Intake and Output for Last 24 Hours 07/26/20 07/27/20 07/28/20 23:59 23:59 23:59 Intake Total 3054.80 / 3054.80 Output Total 3600 / 3600 Balance -545.20 / -545.20 General: Alert, Oriented x3, Cooperative, No apparent distress, Well developed, Well nourished HEENT: Atraumatic, PERRLA, EOMI, Normocephalic Neck: Supple, No JVD Lungs: Normal air movement Cardiovascular: Regular rate Abdomen: Soft, Non Tender, Non-Distended, - - fundus firm Extremities: No edema, No Calf Tenderness Neurological: Cranial nerves II-XII grossly intact, Neuro grossly intact Psych/Mental Status: Normal Affect, Appropriate Microbiology Past 72 Hours 07/26/20 23:40 Mucosa - Nasopharyngeal SARS-CoV-2 Antigen (Rapid) - Final Laboratory Results 07/26/20 23:00: Syphilis Total Ab Non-reactive 07/26/20 23:00: Hep Bs Antigen Non-Reactive, Hepatitis C Antibody Non-Reactive, HIV 1&2 Antibody Non-Reactive Current Medications Acetaminophen (Acetaminophen 500 Mg Tablet) 1,000 mg PO Q8H PRN PRN PRN Reason: Pain Score 1-3 Last Admin: 07/28/20 03:34 Dose: 1,000 mg Documented by: Bisacodyl (Bisacodyl 10 Mg Suppository) 10 mg RC UD PRN PRN Reason: If no BM Dibucaine (Dibucaine 30 Gm Tube) 1 applic TOPICAL TID PRN PRN; Protocol PRN Reason: Discomfort Hydrocortisone (Hydrocortisone 2.5% Crm) 1 applic TOPICAL TID PRN PRN; Protocol PRN Reason: Discomfort Methylergonovine Maleate (Methylergonovine 0.2 Mg/Ml Ampul) 0.2 mg IM X1 PRN PRN Reason: Excess bleeding/uterine atony Naproxen (Naproxen 250 Mg Tablet) 500 mg PO Q8H PRN PRN PRN Reason: Pain Score 1-3 Last Admin: 07/27/20 22:18 Dose: 500 mg Documented by: Ondansetron HCl (Ondansetron 4 Mg/2 Ml Vial) 4 mg IV Q4H PRN PRN PRN Reason: Nausea Oxycodone HCl (Oxycodone 5 Mg Tablet) 5 - 10 mg PO Q4H PRN PRN PRN Reason: Pain Score 4-10 Senna/Docusate Sodium (Senna/Docusate Sodium 1 Tablet) 1 - 2 tablet PO DAILY PRN PRN PRN Reason: Constipation Simethicone (Simethicone 80 Mg Tablet) 80 mg PO PCHS PRN PRN Reason: Indigestion/Stomach pain Sodium Chloride (0.9% Saline Lock 10 Ml Syringe) 5 - 15 ml IV UD PRN PRN Reason: SALINE FLUSH Medical Necessity - Tobacco Use Smoking Status: Never smoker Assessment/Plan All Active Problems (Last Reviewed 07/24/20 @ 13:30 by Lenore Bradshaw) 36 weeks gestation of (Resolved) Active labor (Resolved) Late care affecting (Resolved) (Resolved) Supervision of other normal (Resolved) Abnormal ultrasonic finding on screening of mother (Resolved) Bleeding in early (Resolved) False labor (Resolved) (Resolved) Subchorionic hematoma (Resolved) Supervision of normal first (Resolved) s/p PPD # 1 1. routine post delivery care 2. breast feeding- support given 3. rh positive 4. rubella immune
--- NOTE | 2020-07-28 07:40 | DCINST_ITS ---
Discharge Diet: No Restrictions Discharge Activity: Return to Normal Activity, May not drive while taking narcotic pain medications., May Shower May resume sexual activity in: 4-6 weeks Additional Activity Instructions:: Nothing in the vagina for 4-6 weeks. You may return to work/school in 6 weeks. Call your doctor if your incision/area has: Continuous Slow Oozing, Sudden Increased Bleeding, Increased Pain/ Swelling, Increased Redness, Foul Smelling Discharge Additional Instructions: If you experience any of the following, contact your healthcare provider. * Bleeding that soaks a pad every hour for 2 hours * Fever 100.4 or higher * Unrelieved incision or abdominal pain * Swelling, redness, discharge or bleeding from your incision or episiotomy site * Your incision begins to separate * Problems urinating (including inability to urinate or burning while urinating). * Visual changes * Severe headache * Flu-like symptoms * Pain or redness in one of both of your breasts * Pain, warmth, tenderness or swelling in your legs, especially the calf area * Frequent nausea and vomiting * Symptoms of depression or anxiety If you experience any of the following, call 911 or go to the nearest Emergency Room. * Chest pain * Problems breathing * Seizure activity * Partial or complete paralysis of a body part, slurred speech, weakness or drooping of the face, or a sudden inability to walk or hold your balance Allergies/Adverse Reactions: Allergies No Known Allergies Allergy (Verified 07/26/20 22:31) Medications to take at Discharge vitamin#30 30 mg iron-10 mg iron-folic acid 1 mg-omg3 capsule 1 cap PO DAILY 03/13/20 Naproxen [Naprosyn] 250 - 500 mg PO Q8H PRN PRN #30 tab 07/27/20 The following prescriptions were given: Naproxen [Naprosyn] 250 - 500 mg PO Q8H PRN PRN #30 tab PRN Reason: MILD PAIN Transmission Status: Received by [facility] When: Call to make an appointment with your doctor in 6 weeks. If you had elevated Blood Pressure or 4th degree laceration you will need to be seen in 2 weeks. Primary Care Physician: Davian Mendieta DO [Primary Care Provider] - Test Results: Test results from this visit will be discussed in further detail at your follow- up appointment, if applicable.
[2020-07-28 08:22] VITALS: BP 107/58; PULSE 70
[2020-07-28 08:23] VITALS: BP 107/58; PULSE 70; RESP 16; TEMP 36.5
== END 2020-07-28 11:30 | disposition home or self-care (01) | DRG 807 ==
LOC: WPOUT 22:35 → WP 22:35
PROVIDERS: Admitting Provider Obstetrics & Gynecology; PCP Family Medicine; Referring Provider Obstetrics & Gynecology; Visit Provider Obstetrics & Gynecology
DX: O69.81X0 Labor and delivery complicated by cord around neck, without compression, not applicable or unspecified (principal); Z37.0 Single live birth; O70.1 Second degree perineal laceration during delivery; Z3A.39 39 weeks gestation of pregnancy
CPT/HCPCS: 59025; 59050; 80307; 81001; 84112; 85025; 86703; 86803; 86850; 86900; 86901; 87340; 87426; 87491; 87591; 99218; J7120; A4216; G0378

== ENCOUNTER → 2023-10-06 | Outpatient (CLI) | payer OTHER, SELFPAY ==
[2023-10-06 09:00] LABS: Absolute Lymphocyte Count 1.56 X10^3/uL (0.83-4.51); Absolute Neutrophil Count 5.7 X10^3/uL (2.0-7.7); Basophil# 0.04 X10^3/uL; Basophil% 0.5 % (0-1); Eosinophils% 1.2 % (0-5); Hematocrit 34.5 % (37-47); Hemoglobin 12.1 g/dL (12.0-15.0); Lymphocyte # 1.56 X10^3/ul (0.83-4.51); Lymphocyte % 19.3 % (19-41); Mean Corp Hgb Conc 35.1 g/dL (32-36); Mean Corpuscular Hgb 31.6 pg (27.0-32.0); Mean Corpuscular Volume 90.1 fL (81-99); Mean Platelet Vol. 9.1 fl (6.2-12.0); Monocyte# 0.71 X10^3/uL; Monocyte% 8.8 % (0-10); NRBC Flagged by Analyzer 0 % (0-5); Neutrophil # 5.67 X10^3/uL (2.7-7.7); Platelet Count 265 K/mm3 (150-450); RBC Distribution Width CV 12.8 % (11.6-14.6); Red Blood Count 3.83 M/mm3 (4.2-5.4); White Blood Count 8.1 K/mm3 (4.4-11.0)
[2023-10-06 10:26] LABS: HIV - WCH Non-Reactive (Nonreactive); Hepatitis B Surface Antigen Non-Reactive (Nonreactive); Hepatitis C Antibody Non-Reactive (Nonreactive); Rubella IgG Reactive (Nonreactive); Syphilis Antibodies Non-reactive
[2023-10-08 03:07] LABS: Chlamydia By Nucleic Acid AMP Negative (Negative); Gonococcus By Nucleic Acid AMP Negative (Negative)
[2023-10-10 20:26] LABS: HPV Reflexed? NOT INDICATED
== END | disposition home or self-care (01) ==
LOC: PAVLAB 08:40
PROVIDERS: PCP Family Medicine; Referring Provider Obstetrics & Gynecology; Visit Provider Obstetrics & Gynecology
DX: Z34.02 Encounter for supervision of normal first pregnancy, second trimester (principal)
CPT/HCPCS: 36415; 85025; 86703; 86762; 86780; 86803; 86850; 86900; 86901; 87077; 87086; 87088; 87340; 87491; 87591; 88175; G0145

== ENCOUNTER → 2023-11-04 | Outpatient (CLI) | payer SELFPAY, OTHER ==
--- NOTE | 2023-11-04 15:15 | US_ITS ---
INDICATION: anatomy EXAMINATION: Ultrasound US OB Greater Than 14 Weeks TECHNIQUE: Transabdominal pelvic ultrasound was performed. COMPARISON: None. LMP: 06/13/2023 Beta-hCG: Unknown. Provided EGA: None. FINDINGS: INTRAUTERINE GESTATION(s): Single. HEART MOTION is 155 bpm. AMNIOTIC FLUID INDEX (JOSE): Normal CERVICAL LENGTH: 4.3 cm. Cervix is closed. ESTIMATED WEIGHT: 341 g Percentile 27.87%. BIOPHYSICAL PROFILE (BPP): Not assessed. PRESENTATION: Breech PLACENTA: Posterior LEFT lateral There is no placenta previa or abruption. CERVIX: The cervix is closed. ANATOMY: There is normal appearance of the intracranial contents, chest and abdomen with normal appearance of the cardiac chambers, fluid-filled stomach kidneys and bowel. RIGHT renal pelvis measures 3.9 mm, LEFT renal pelvis measures 2.6 mm. Normal appearance of bladder. Normal appearance of the visualized face and appendicular skeleton. BIOMETRY: BPD: 44.6 mm: 19 weeks 3 days Head circumference: 190.5 mm: 21 weeks to Abdominal circumference: 154.6 mm: 20 weeks 4 days Femur length: 31.9 mm: 20 weeks 0 days Estimated weight: 341 g MATERNAL OVARIES: Not visualized FREE FLUID: None. US/OB Anatomy w/ Transvaginal IMPRESSION: 1. Single live intrauterine of 20 weeks 4 days gestation. EDC estimated at 03/19/2024. 2. Breech position. Posterior placenta. Cervix is closed. Normal amniotic fluid. 3. heart activity at 1 55 bpm. No abnormal fluid collections. 4. Normal review of anatomy. Incidental note of mild renal pelvis prominence however both less than 5 mm and within normal limits. Electronically Signed: Juice Dodson MD at 23:38 EDT ,
== END | disposition home or self-care (01) ==
LOC: US 15:14
PROVIDERS: PCP Family Medicine; Visit Provider Obstetrics & Gynecology
DX: Z34.90 Encounter for supervision of normal pregnancy, unspecified, unspecified trimester (principal)
CPT/HCPCS: 76805; 76817

== ENCOUNTER → 2023-12-29 | Outpatient (CLI) | payer OTHER, SELFPAY ==
[2023-12-29 10:59] LABS: Absolute Lymphocyte Count 1.66 X10^3/uL (0.83-4.51); Absolute Neutrophil Count 7.4 X10^3/uL (2.0-7.7); Basophil# 0.05 X10^3/uL; Basophil% 0.5 % (0-1); Hemoglobin 10.7 g/dL (12.0-15.0); Lymphocyte # 1.66 X10^3/ul (0.83-4.51); Lymphocyte % 16.6 % (19-41); Mean Corp Hgb Conc 33.4 g/dL (32-36); Mean Corpuscular Hgb 31.1 pg (27.0-32.0); Mean Platelet Vol. 9.1 fl (6.2-12.0); Monocyte# 0.76 X10^3/uL; Monocyte% 7.6 % (0-10); NRBC Flagged by Analyzer 0 % (0-5); Neutrophil # 7.38 X10^3/uL (2.7-7.7); Neutrophil % 73.6 % (47-70); Platelet Count 252 K/mm3 (150-450); RBC Distribution Width SD 43.9 fl (35.1-43.9); Red Blood Count 3.44 M/mm3 (4.2-5.4)
[2023-12-29 11:20] LABS: Glucose Challenge Gest 1H 50g 123 mg/dL (70-140)
[2023-12-29 11:55] LABS: HIV - WCH Non-Reactive (Nonreactive); Syphilis Antibodies Non-reactive
== END | disposition home or self-care (01) ==
LOC: PAVLAB 10:42
PROVIDERS: PCP Family Medicine; Referring Provider Advanced Practice Midwife; Visit Provider Advanced Practice Midwife
DX: Z34.90 Encounter for supervision of normal pregnancy, unspecified, unspecified trimester (principal)
CPT/HCPCS: 36415; 82950; 85025; 86703; 86780

== ENCOUNTER 2024-03-24 12:45 | Inpatient (IN) | payer SELFPAY, OTHER ==
[2024-03-24] VITALS (28 sets, daily range): BP systolic 92–131; BP diastolic 50–88; PULSE 72–106; RESP 16; TEMP 36.5–37.3; O2SAT 88–100; BMI 39.3
[2024-03-24 11:24] LABS: ROM Internal Control Test YES-OK TO RESULT pt. (Internal QC); ROM Patient Test Negative (Negative)
[2024-03-24] MEDS: Lactated Ringers 1,000 ML 50 ML IV ×2 (13:30→17:03)
[2024-03-24 13:42] LABS: Absolute Lymphocyte Count 2.04 X10^3/uL (0.83-4.51); Absolute Neutrophil Count 9.1 X10^3/uL (2.0-7.7); Basophil# 0.06 X10^3/uL; Basophil% 0.5 % (0-1); Eosinophil# 0.07 X10^3/uL; Eosinophils% 0.6 % (0-5); Hematocrit 32.6 % (37-47); Hemoglobin 11.2 g/dL (12.0-15.0); Lymphocyte # 2.04 X10^3/ul (0.83-4.51); Lymphocyte % 16.4 % (19-41); Mean Corp Hgb Conc 34.4 g/dL (32-36); Mean Corpuscular Hgb 31.7 pg (27.0-32.0); Mean Corpuscular Volume 92.4 fL (81-99); Mean Platelet Vol. 9.4 fl (6.2-12.0); Monocyte# 1.09 X10^3/uL; Monocyte% 8.7 % (0-10); NRBC Flagged by Analyzer 0 % (0-5); Neutrophil # 9.09 X10^3/uL (2.7-7.7); Neutrophil % 72.9 % (47-70); Platelet Count 285 K/mm3 (150-450); RBC Distribution Width CV 13.9 % (11.6-14.6); RBC Distribution Width SD 45.8 fl (35.1-43.9); Red Blood Count 3.53 M/mm3 (4.2-5.4); White Blood Count 12.5 K/mm3 (4.4-11.0)
[2024-03-24 14:27] LABS: Syphilis Antibodies Non-reactive
[2024-03-24] MEDS: 0.9% Normal Saline Single 100 ML IV.SOLN. INTRA-UTER (15:00)
[2024-03-24] MEDS: Oxytocin 15 Units/NS 250ml 15 UNITS/250 ML IV.SOLN 2 UNITS IV (15:05)
[2024-03-24] MEDS: Lactated Ringers 1,000 ML 999 ML IV (15:10)
[2024-03-24] MEDS: fentaNYL-bupivacaine (epidural) 100 ML BAG EPIDURAL ×2 (16:09→21:00)
[2024-03-24] MEDS: Penicillin G Pot 5,000,000 UNITS in 0.9% Normal Saline (100mL MB+) 100 ML 150 UNITS IV (16:59)
[2024-03-24] MEDS: Terbutaline 1 MG/ML Vial 0.25 MG SC (20:55)
[2024-03-24] MEDS: 0.9% Normal Saline 100 ML IV.SOLN. 300 ML INTRA-UTER (21:00)
[2024-03-24] MEDS: Methylergonovine 0.2 MG/ML Ampul IM (21:59)
[2024-03-24] MEDS: Oxytocin 15 Units/NS 250ml 15 UNITS/250 ML IV.SOLN 83 UNITS IV (22:23)
[2024-03-25 00:02] VITALS: BP 115/56; PULSE 85; RESP 16; TEMP 37
[2024-03-25 03:47] VITALS: BP 107/62; PULSE 61; RESP 14; TEMP 36.2; O2SAT 97
[2024-03-25] MEDS: Acetaminophen 500 MG Tablet 1000 MG PO ×2 (06:34→14:22)
[2024-03-25 07:27] VITALS: BP 106/66; PULSE 79; RESP 15; TEMP 36.6
[2024-03-25 11:38] VITALS: BP 128/70; PULSE 84; RESP 16; TEMP 36.2; O2SAT 98
[2024-03-25 16:45] VITALS: BP 107/70; PULSE 74; RESP 15; TEMP 36.5; O2SAT 98
[2024-03-25] MEDS: Ibuprofen 600 MG Tablet PO (18:51)
[2024-03-25 20:18] VITALS: BP 115/64; PULSE 75; RESP 16; TEMP 36.8; O2SAT 97
[2024-03-26] MEDS: Acetaminophen 500 MG Tablet 1000 MG PO (02:03)
[2024-03-26 02:15] VITALS: BP 106/60; PULSE 72; RESP 16; TEMP 36.6; O2SAT 98
[2024-03-26 07:53] VITALS: BP 115/69; PULSE 80; RESP 16; TEMP 36.4
== END 2024-03-26 09:40 | disposition home or self-care (01) | DRG 806 ==
LOC: WPOUT 12:52 → WP 12:52
PROVIDERS: Admitting Provider Obstetrics & Gynecology; PCP Family Medicine; Referring Provider Obstetrics & Gynecology; Visit Provider Obstetrics & Gynecology
DX: O76 Abnormality in fetal heart rate and rhythm complicating labor and delivery (principal); Z37.0 Single live birth; O41.03X0 Oligohydramnios, third trimester, not applicable or unspecified; O23.43 Unspecified infection of urinary tract in pregnancy, third trimester; O99.214 Obesity complicating childbirth; O66.0 Obstructed labor due to shoulder dystocia; O48.0 Post-term pregnancy; O36.8130 Decreased fetal movements, third trimester, not applicable or unspecified; Z3A.40 40 weeks gestation of pregnancy; B95.1 Streptococcus, group B, as the cause of diseases classified elsewhere; O87.4 Varicose veins of lower extremity in the puerperium; O99.824 Streptococcus B carrier state complicating childbirth; O70.0 First degree perineal laceration during delivery
CPT/HCPCS: 59025; 59050; 84112; 85025; 86780; 86850; 86900; 86901; 99221; J7120; G0378